=== PATIENT | male | born 1960 | race Caucasian/White ===

== ENCOUNTER → 2020-02-27 09:17 | Outpatient (BNVA) | payer BC, SELFPAY | PROVIDERS: Visit Provider Nurse Practitioner Family | DX: I10 Essential (primary) hypertension (principal) | CPT/HCPCS: 80048; 80061 ==

== ENCOUNTER 2020-03-06 10:22 | Outpatient (CLI) | payer BC, SELFPAY ==
--- NOTE | 2020-03-06 10:33 | XR_ITS ---
WS: [id number] Right foot, 3 views, 03/06/2020 Clinical Data: right foot pain Comparison: None. Findings: No fractures or dislocations are seen. No bone destruction or erosion is noted. The joint spaces and soft tissues are normal. There is an Achilles spur and a plantar spur. XR/XR foot RT min 3V* [id number] Impression: Negative right foot.
== END 2020-03-06 10:23 | disposition home or self-care (01) ==
LOC: RAD 10:25
PROVIDERS: Visit Provider Nurse Practitioner Family
DX: M79.671 Pain in right foot (principal); R73.9 Hyperglycemia, unspecified
CPT/HCPCS: 73630; 83036

== ENCOUNTER 2020-03-30 14:23 | Outpatient (CLI) | payer BC, SELFPAY | END 2020-03-30 14:24 | disposition home or self-care (01) | LOC: SPT 14:23 | PROVIDERS: Visit Provider Podiatrist Foot & Ankle Surgery | DX: M76.71 Peroneal tendinitis, right leg (principal) | CPT/HCPCS: 97760; L4361 ==

== ENCOUNTER → 2020-06-11 08:34 | Outpatient (BNVA) | payer SELFPAY | PROVIDERS: Visit Provider Nurse Practitioner Family | DX: I10 Essential (primary) hypertension (principal); Z79.899 Other long term (current) drug therapy; E55.9 Vitamin D deficiency, unspecified | CPT/HCPCS: 80053; 81003; 82306; 83036; 83735; 84443; 85025 ==

== ENCOUNTER 2020-08-20 12:58 | Emergency (ER) | payer BC, SELFPAY ==
[2020-08-20 13:04] VITALS: BP 138/87; PULSE 80; RESP 20; TEMP 36.5; O2SAT 94; BMI 48.1
--- NOTE | 2020-08-20 14:51 | XR_ITS ---
WS: [id number] Exam: XR chest 1V portable [id number] Date/Time of Exam: 08/20/2020 3:09 PM Reason For Exam: dyspnea No priors. Diffuse groundglass infiltrates are seen in the mid and lower lung zones. Normal cardiomediastinal st ructures for technique. The lungs are fully inflated. No pleural effusions. No pneumothorax. Regional bony elements are intact. The mediastinum is not widened. XR/XR chest 1V portable [id number] IMPRESSION: 1. Groundglass infiltrates seen in the mid and lower lung zones bilaterally mos t likely representing active pneumonia.
[2020-08-20 15:24] LABS: Basophils % 0.3 %; Eosinophils # 0.2 10^3/uL (0.0-0.8); Eosinophils % 3.4 %; Hematocrit 44.8 % (42.0-52.0); Hemoglobin 14.3 g/dL (11.7-16.6); Lymphocytes # 1.9 10^3/uL (0.8-4.8); Lymphocytes % 29.6 %; Mean Corpuscular HGB Conc 31.9 g/dL (30.0-36.0); Mean Corpuscular Hemoglobin 29.9 pg (28.0-34.0); Mean Corpuscular Volume 93.5 fL (80-94); Mean Platelet Volume 10.3 fL (7.4-10.4); Monocytes # 0.5 10^3/uL (0.2-0.9); Monocytes % 7.8 %; Neutrophils # 3.74 10^3/uL (1.8-7.7); Neutrophils % 58.6 %; Nucleated Red Blood Cells % 0 %; Platelet Count 259 10^3/cmm (130-400); Red Blood Count 4.79 10^6/uL (4.1-5.3); Red Cell Distribution Width 12.6 % (12.1-15.1); White Blood Count 6.4 10^3/uL (4.0-10.0)
--- NOTE | 2020-08-20 15:24 | ED_ITS ---
HPI - COVID General: Chief Complaint: COVID symptoms Stated Complaint: covid symptoms/sob Time Seen by Provider: 08/20/20 14:37 Triage information: Has fever, cough or shortness of breath . Exposure to COVID + person last 14 days History of Present Illness: HPI Narrative: 9-year-old male comes in complaining of generalized flulike symptoms began about 3 days ago weakness increasing cough. He had a low-grade temp up to 99. His uncle was seen today evidently tested positive for Covid he seen his yesterday for about 4 to 5 hours but his symptoms began 3 or 4 days ago. Cough has been nonproductive. He denies any anosmia. MD complaint: reported COVID exposure Prior covid testing: no COVID 19 common symptoms: positive fever(s), chills, cough, non-productive cough, dyspnea, fatigue, body aches, nasal congestion, nausea and diarrhea; negative loss of sense of smell and/or taste or vomiting COVID 19 other sytmptoms: negative chest pain or requiring oxygen Treatment prior to arrival: acetaminophen and ibuprofen COVID Results: SARS-CoV-2 Antigen (Rapid) Negative (Negative) 08/20/20 12:31 08/20/20 Review of Systems Const: Reports: fever(s), chills, body aches and fatigue ENMT: Reports: nasal congestion Card: Denies: chest pain, edema, dyspnea on exertion or orthopnea Resp: Reports: dyspnea and non-productive cough GI: Reports: nausea and diarrhea; Denies: vomiting : Denies: flank pain, dysuria, urinary frequency or urinary urgency Skin/Breast: Denies: rash or pruritus PFS ED PFSH: Medical History HTN (hypertension) Medication management Vitamin D deficiency Physical Exam Const: COMMON NORMALS: no acute distress GENERAL APPEARANCE: cooperative and comfortable ORIENTATION/CONSCIOUSNESS: Yes awake, Yes oriented to person, Yes oriented to place and Yes oriented to time HENMT: COMMON NORMALS: normocephalic, atraumatic and hearing grossly normal bilaterally HEAD & SCALP: normocephalic and atraumatic Neck/C-Spine: COMMON NORMALS: no JVD Resp: COMMON NORMALS: normal respiratory effort, No retractions, No use of accessory muscles and clear to auscultation bilaterally AUSCULTATION: clear to auscultation bilaterally Cardio: COMMON NORMALS: no JVD, regular rate, regular rhythm and No murmurs present (Cardio) RATE: regular rate RHYTHM: regular rhythm GI: COMMON NORMALS: Soft to palpation and No hepatosplenomegaly present AUSCULTATION: Yes normoactive bowel sounds PALPATION: Yes Soft to palpation, No Tenderness to palpation present (GI), No Guarding due to palpation present (GI) and Yes No hepatosplenomegaly present Extremity: COMMON NORMALS: normal to inspection, capillary refill normal, no clubbing, cyanosis or edema, no calf tenderness and no pedal edema Neuro: SENSORIUM/ORIENTATION: Yes oriented to person, Yes oriented to place and Yes oriented to time Skin: COMMON NORMALS: no rashes or lesions noted GENERAL SKIN EXAM: no rashes or lesions noted Course Vital Signs: Vital signs: Vital Signs Temperature 97.7 F 08/20/20 13:04 Pulse Rate 80 08/20/20 13:04 Respiratory Rate 20 H 08/20/20 13:04 Blood Pressure 138/87 08/20/20 13:04 Pulse Oximetry 94 08/20/20 13:04 MDM - COVID MDM Narrative: Medical decision making narrative: Covid negative. Will discharge home with O2 sat monitor dexamethasone. Advised to maintain self quarantine. Return if has further problems. Based on his exam and history and imaging findings I do suspect he does have Covid PCR has been done. Lab Data: Labs: Lab Results 08/20/20 08/20/20 08/20/20 Range/Units 12:31 15:13 15:13 WBC 6.4 (4.0-10.0) 10^3/ uL RBC 4.79 (4.1-5.3) 10^6/u L Hgb 14.3 (11.7-16.6) g/dL Hct 44.8 (42.0-52.0) % MCV 93.5 (80-94) fL MCH 29.9 (28.0-34.0) pg MCHC 31.9 (30.0-36.0) g/dL RDW 12.6 (12.1-15.1) % Plt Count 259 (130-400) 10^3/c mm MPV 10.3 (7.4-10.4) fL Neut % (Auto) 58.6 % Lymph % (Auto) 29.6 % [place] % (Auto) 7.8 % Eos % (Auto) 3.4 % Baso % (Auto) 0.3 % Neut # (Auto) 3.74 (1.8-7.7) 10^3/u L Lymph # (Auto) 1.9 (0.8-4.8) 10^3/u L [place] # (Auto) 0.5 (0.2-0.9) 10^3/u L Eos # (Auto) 0.2 (0.0-0.8) 10^3/u L Baso # (Auto) 0.0 (0.0-0.1) 10^3/u L Nucleated RBC % (a uto) 0 % Nucleated RBCs # 0.0 /100WBC Sodium 141 (136-145) mmol/L Potassium 4.3 (3.5-5.1) mmol/L Chloride 104 (98-107) mmol/L Carbon Dioxide 27 (22-29) mmol/L Anion Gap 14.3 (5-19) BUN 16 (6-20) mg/dL Creatinine 1.1 (0.7-1.2) mg/dL GFR Calculation 69.0 L (90-130) mL/min Glucose 109 (65-115) mg/dL Calculated Osmolal ity 294 (285-295) mOsm/k g Lactic Acid (0.5-2.2) mmol/L Calcium 9.0 (8.5-10.5) mg/dL Total Bilirubin 0.3 (0.15-1.2) mg/dL AST 28 (0-40) U/L ALT 36 (0-41) U/L Alkaline Phosphata se 55 (40-130) IU/L C-Reactive Protein 20.5 H (0.0-4.9) mg/L Total Protein 7.8 (6.6-8.7) g/dL Albumin 3.7 (3.5-5.2) g/dL Globulin 4.1 (1.3-4.6) g/dL SARS-CoV-2 Ag (Rap id) Negative (Negative) 08/20/20 Range/Units 15:13 WBC (4.0-10.0) 10^3/ uL RBC (4.1-5.3) 10^6/u L Hgb (11.7-16.6) g/dL Hct (42.0-52.0) % MCV (80-94) fL MCH (28.0-34.0) pg MCHC (30.0-36.0) g/dL RDW (12.1-15.1) % Plt Count (130-400) 10^3/c mm MPV (7.4-10.4) fL Neut % (Auto) % Lymph % (Auto) % [place] % (Auto) % Eos % (Auto) % Baso % (Auto) % Neut # (Auto) (1.8-7.7) 10^3/u L Lymph # (Auto) (0.8-4.8) 10^3/u L [place] # (Auto) (0.2-0.9) 10^3/u L Eos # (Auto) (0.0-0.8) 10^3/u L Baso # (Auto) (0.0-0.1) 10^3/u L Nucleated RBC % (a uto) % Nucleated RBCs # /100WBC Sodium (136-145) mmol/L Potassium (3.5-5.1) mmol/L Chloride (98-107) mmol/L Carbon Dioxide (22-29) mmol/L Anion Gap (5-19) BUN (6-20) mg/dL Creatinine (0.7-1.2) mg/dL GFR Calculation (90-130) mL/min Glucose (65-115) mg/dL Calculated Osmolal ity (285-295) mOsm/k g Lactic Acid 1.3 (0.5-2.2) mmol/L Calcium (8.5-10.5) mg/dL Total Bilirubin (0.15-1.2) mg/dL AST (0-40) U/L ALT (0-41) U/L Alkaline Phosphata se (40-130) IU/L C-Reactive Protein (0.0-4.9) mg/L Total Protein (6.6-8.7) g/dL Albumin (3.5-5.2) g/dL Globulin (1.3-4.6) g/dL SARS-CoV-2 Ag (Rap id) (Negative) COVID Results: SARS-CoV-2 Antigen (Rapid) Negative (Negative) 08/20/20 12:31 08/20/20 Discharge Plan Discharge Patient Disposition: Home Clinical Impression: Viral URI, HTN (hypertension), Suspected severe acute respiratory syndrome coronavirus 2 (SARS-CoV-2) infection Condition: Stable Prescriptions: New dexamethasone 6 mg tablet 6 mg PO DAILY Qty: 7 RF: 0 No Action cholecalciferol (vitamin D3) 1,250 mcg (50,000 unit) capsule 50,000 unit PO .weekly Qty: 4 RF: 2 losartan 25 mg tablet 25 mg PO BID 30 Days Qty: 180 RF: 0 Discharge Orders: Discharge ED (Routine); Ordered 08/20/20 Ordered By: Sergio Nails Discharge Diet: Usual diet Discharge Activity: Increase activity as tolerated Activity Restrictions/Additional Instructions: Suspected to be Covid positive. Recommend you maintain in self quarantine until results are available. We discharged home with dexamethasone to take daily. If you have worsening symptoms return. Coding Level of Care Code ED [employer] for Tanya Fwd Exam Comprehensive
[2020-08-20 15:45] LABS: Lactic Sepsis W/Reflex 1.3 mmol/L (0.5-2.2)
[2020-08-20 15:46] LABS: Alanine Aminotransferase 36 U/L (0-41); Albumin Level 3.7 g/dL (3.5-5.2); Alkaline Phosphatase 55 IU/L (40-130); Anion Gap 14.3 (5-19); Aspartate Amino Transferase 28 U/L (0-40); Blood Urea Nitrogen 16 mg/dL (6-20); C Reactive Protein 20.5 mg/L (0.0-4.9); Carbon Dioxide 27 mmol/L (22-29); Chloride 104 mmol/L (98-107); Globulin 4.1 g/dL (1.3-4.6); Glucose 109 mg/dL (65-115); Osmolality Calculated 294 mOsm/kg (285-295); Potassium 4.3 mmol/L (3.5-5.1); Slide Review Slide Review Perform; Sodium 141 mmol/L (136-145); Total Bilirubin 0.3 mg/dL (0.15-1.2); Total Protein 7.8 g/dL (6.6-8.7)
[2020-08-20 15:53] LABS: SARS Covid-2 Antigen Negative (Negative)
[2020-08-20 16:19] VITALS: BP 133/94; PULSE 88; RESP 20; O2SAT 93
[2020-08-23 08:28] LABS: Quest SARS-CoV-2 RNA DETECTED (NOT DETECTED)
--- NOTE | 2020-08-23 15:43 | PC.NURSE ---
Patient called to be notified of COVID results. No answer on patients phone and message left at this time.
--- NOTE | 2020-08-24 09:02 | PC.NURSE ---
left message in attempts to give Pt COVID results. Letter sent out.
--- NOTE | 2020-08-27 14:35 | PC.NURSE ---
PT WILL BE MAILED OUT A LETTER ABOUT HIS COVID TEST
== END 2020-08-20 16:22 | disposition home or self-care (01) ==
PROVIDERS: Emergency Provider Family Medicine
DX: U07.1 COVID-19 (principal); I10 Essential (primary) hypertension
CPT/HCPCS: 12345; 71045; 80053; 83605; 85025; 86140; 87426; 87635; 99281; 99283